=== PATIENT | male | born 1995 | race African-American/Black ===

== ENCOUNTER 2019-05-15 20:02 | Emergency (ER) | payer OTHER ==
--- NOTE | 2019-05-15 20:08 | ED Physician Documentation ---
PD HPI NVD - Stated complaint Stated Complaint: N/V/D - History obtained from History obtained from: Patient - History of Present Illness Timing - onset: Today (this morning) Timing - details: Abrupt onset, Still present, Waxing and waning Associated symptoms: Abdominal pain (He has had intermittent crampy abdominal pain mostly in the left lower area through the day associated with diarrhea. He has not been continuous. He has had nausea and vomiting several times through the day as well. He denies fever chills or any upper respiratory symptoms. He has not noticed any blood in his vomit nor his stool. He traveled yesterday. He is not aware of any obvious bad food. He had been eating mainly vegan and did have some meat yesterday so thought it might be just irritating as well. He was due to work tonight and did not feel well enough for that and needed an evaluation.) Contributing factors: Travel (Returned from deployment in [place] yesterday so had traveled by airport. He is not aware of any unusually bad food.). No: Sick contact, Bad food Similar symptoms before: Has not had sx before Recently seen: Not recently seen Review of Systems Constitutional: denies: Fever, Chills Nose: denies: Rhinorrhea / runny nose, Congestion Throat: denies: Sore throat Respiratory: denies: Cough GI: reports: Abdominal Pain (intermittent cramping), Nausea, Vomiting, Diarrhea. denies: Abdominal Swelling : denies: Dysuria, Frequency Musculoskeletal: denies: Neck pain, Back pain PD PAST MEDICAL HISTORY - Past Medical History Cardiovascular: None Respiratory: None Neuro: None Endocrine/Autoimmune: None GI: None - Present Medications Home Medications: Ambulatory Orders Medication Instructions Recorded Confirmed Diphenoxylate/Atropine [Lomotil] 1 each PO QID PRN #12 tablet 05/15/19 Ondansetron Odt [Zofran] 4 mg TL Q6H PRN #10 tablet 05/15/19 - Allergies Allergies/Adverse Reactions: Allergies Allergy/AdvReac Type Severity Reaction Status Date / Time No Known Drug Allergies Allergy Verified 05/15/19 20:10 PD ED PE NORMAL - Vitals Vital signs reviewed: Yes - General General: Alert and oriented X 3, Well developed/nourished - HEENT HEENT: Pharynx benign - Neck Neck: Supple, no meningeal sign, No adenopathy - Cardiac Cardiac: RRR, No murmur - Respiratory Respiratory: Clear bilaterally - Abdomen Abdomen: Non distended, Other (no focal tenderness. Mild general tender LLQ area. No percussion nor rebound tenderness. ). No: Normal bowel sounds (increased bowel sounds) - Back Back: No CVA TTP - Derm Derm: Normal color, Warm and dry Results - Vitals Vitals: Vital Signs - 24 hr 05/15/19 20:08 Temperature 37.5 C Heart Rate 64 Respiratory 16 Rate Blood Pressure 128/80 O2 Saturation 98 Oxygen O2 Source Room air PD MEDICAL DECISION MAKING - ED course Complexity details: considered differential (Sounds likely if food irritation or products of bleeding viral gastroenteritis. I would presume improvement within a day or 2. He does not look in any distress. His abdomen is benign on exam.), d/w patient Departure - Departure Disposition: 01 Home, Self Care Clinical Impression: Nausea vomiting and diarrhea Condition: Stable Record reviewed to determine appropriate education?: Yes Instructions: ED Food Poison Or Gastroenteritis Prescriptions: Diphenoxylate/Atropine [Lomotil] 1 each PO QID PRN #12 tablet PRN Reason: Diarrhea Ondansetron Odt [Zofran] 4 mg TL Q6H PRN #10 tablet PRN Reason: Nausea / Vomiting Comments: This sounds likely to be a viral intestinal illness. Most commonly these will last for 1 to 2 days. Off work tonight and possibly tomorrow. Stay well-hydrated with small frequent fluids. Use ondansetron every 4-6 hours if needed for nausea. Add Tylenol or ibuprofen if needed for pains or cramps. You likely will be feeling improved into tomorrow or the next day. I wrote prescriptions for more nausea and diarrhea medicine should this persist on-off. Return for recheck if not better over the next couple of days or if you have increasing pain, repetitive vomiting, fevers, bloody stool or more localized pain or other concerns. Forms: Activity restrictions
[2019-05-15 20:10] VITALS: BP 128/80
[2019-05-15] MEDS ORDERED: IBUPROFEN 600 MG TABLET PO STA (20:30)
[2019-05-15] MEDS ORDERED: ONDANSETRON ODT 4 MG TABLET TL STA (20:30)
[2019-05-15] MEDS ORDERED: ONDANSETRON ODT 4 MG Prepack 2 TL PRN (20:30)
[2019-05-15] MEDS ORDERED: DIPHENOX/ATROPINE 2.5/0.025 MG TABLET PO STA (20:30)
== END 2019-05-15 20:49 | disposition home or self-care (01) ==
LOC: ED 20:02
DX: R11.2 Nausea with vomiting, unspecified (principal); R19.7 Diarrhea, unspecified
CPT/HCPCS: 99282; 99284; A9270; Q0162